=== PATIENT | female | born 1965 | race Caucasian/White ===

== ENCOUNTER 2016-10-31 09:08 | Emergency (ER) | payer MEDICAID ==
[2016-10-31] MEDS ORDERED: Ketorolac 60 MG/2 ML SDV IM ONE (09:22)
--- NOTE | 2016-10-31 09:45 | EDM.PDOC ---
ED HPI GENERAL MEDICAL PROBLEM - General Chief Complaint: Back Pain or Injury Stated Complaint: LEFT LEG NUMBNESS Time Seen by Provider: 10/31/16 09:23 Source of Information: Reports: Patient, Old Records History Limitations: Reports: No Limitations - History of Present Illness INITIAL COMMENTS - FREE TEXT/NARRATIVE: 51 yo female patient of Dr. Acosta presents with chronic low back pain. She has an appt with a neurologist in [place] in 6 days, but came from work stating she can't tolerate it any more. Did not contact her provider today before coming in to be seen. Has nothing new going on with her pain. Onset: Gradual Duration: Chronic, Getting Worse Location: Reports: Back Quality: Reports: Ache, Burning Severity: Moderate Improves with: Reports: Rest Worsens with: Reports: Movement Context: Reports: Other (degenerative dz) Associated Symptoms: Reports: Other (L leg and arm numbness.) Treatments DIRECTOR OF PEOPLE: Reports: Other (see below) (neurontin) - Related Data Allergies Allergy/AdvReac Type Severity Reaction Status Date / Time No Known Allergies Allergy Verified 06/25/14 13:24 Home Meds: Home Meds Albuterol Sulfate [Albuterol Sulfate HFA] 2 puff IH QID PRN 06/25/14 [History] Gabapentin [Neurontin] 300 mg PO TID 06/25/14 [History] Ibuprofen [Advil] 200 mg PO 6XDAY PRN 06/25/14 [History] Social & Family History - Tobacco Use Smoking Status *Q: Current Every Day Smoker Years of Tobacco use: 35 - Alcohol Use Days Per Week of Alcohol Use: 7 - Recreational Drug Use Recreational Drug Use: No ED ROS GENERAL - Review of Systems Review Of Systems: See Below Constitutional: Reports: No Symptoms Respiratory: Reports: No Symptoms Cardiovascular: Reports: No Symptoms GI/Abdominal: Reports: No Symptoms : Reports: No Symptoms Musculoskeletal: Reports: Back Pain Skin: Reports: No Symptoms Neurological: Reports: Numbness (L lower leg and L arm) Psychiatric: Reports: No Symptoms ED EXAM,LOWER BACK PAIN/INJURY - Physical Exam Exam: See Below Exam Limited By: No Limitations General Appearance: Alert, WD/WN, No Apparent Distress Ears: Hearing Grossly Normal Nose: Normal Inspection, No Blood Throat/Mouth: Normal Voice, No Airway Compromise Head: Atraumatic, Normocephalic Respiratory/Chest: No Respiratory Distress, No Accessory Muscle Use Cardiovascular: Regular Rate, Rhythm, No Edema Back Exam: Normal Inspection, Vertebral Tenderness (mild lumbar and R paraspinous muscle tenderness.). No: CVA Tenderness (R), CVA Tenderness (L) Extremities: Normal Inspection, Normal Range of Motion, Non-Tender Neurological: Alert, Normal Mood/Affect, CN II-XII Intact, No Motor/Sensory Deficits Psychiatric: Normal Affect, Normal Mood Skin Exam: Warm, Dry, Intact, Normal Color, No Rash Lymphatic: No Adenopathy Course - Vital Signs Text/Narrative:: Called and talked with her primary, Dr. Acosta, he is available to see her today. Last Recorded V/S: Last Vital Signs Temp 35.6 C 10/31/16 09:10 Pulse 95 10/31/16 09:10 Resp 18 10/31/16 09:10 BP 158/97 H 10/31/16 09:10 Pulse Ox 92 L 10/31/16 09:10 - Orders/Labs/Meds Meds: Medications Discontinued Medications Generic Name Dose Route Start Last Admin Trade Name Julio Cesar PRN Reason Stop Dose Admin Ketorolac Tromethamine 60 mg 10/31/16 09:22 10/31/16 09:36 Toradol IM 10/31/16 09:23 60 mg ONETIME ONE Administration Departure - Departure Time of Disposition: 09:55 Disposition: Home, Self-Care 01 Condition: Good Clinical Impression: Chronic low back pain Qualifiers: Back pain laterality: right Sciatica presence: with sciatica Sciatica laterality: sciatica of right side Qualified Code(s): M54.41 - Lumbago with sciatica, right side; G89.29 - Other chronic pain - Discharge Information Referrals: Javier Acosta MD [Primary Care Provider] - Forms: ED Department Discharge Care Plan Goals: Go to Dr. Acosta's office today to be seen by him.
[2016-10-31 10:13] VITALS: BP 119/77
== END 2016-10-31 10:01 | disposition home or self-care (01) ==
LOC: FB.ED 09:08
DX: G89.29 Other chronic pain (principal); M54.41 Lumbago with sciatica, right side; F17.210 Nicotine dependence, cigarettes, uncomplicated
CPT/HCPCS: 96372; 99283; J1885

== ENCOUNTER 2018-05-24 06:33 | Day surgery (SDC) | payer MEDICAID ==
[2018-05-24] MEDS ORDERED: Propofol 200 MG/20 ML SDV IV ONE (06:34)
[2018-05-24] MEDS ORDERED: Lidocaine 2% 100 MG/5 ML Syringe IVPUSH ONE (06:34)
[2018-05-24] MEDS ORDERED: Lactated Ringers 1,000 ML IV SCH (06:45)
[2018-05-24] MEDS ORDERED: Albuterol/Ipratropium 3.0-0.5 MG/3 ML Neb Soln NEB ONE (07:29)
[2018-05-24] MEDS ORDERED: Simethicone Drops 40 MG/0.6 ML 30 ML Bottle ONE (08:10)
--- NOTE | 2018-05-24 08:31 | PCM.OPNOTE ---
- General Post-Op/Procedure Note Date of Surgery/Procedure: 05/24/18 Operative Procedure(s): egd with bx. c scope with bx Findings: gastritis colon and rectal polyps Pre Op Diagnosis: abd pain bloating, early satiety. hx of dysplastic colon polyp Post-Op Diagnosis: gastritis. colon and rectal polyps Anesthesia Technique: [employer] Primary Surgeon: Jj Rankin Anesthesia Provider: Javier Mcmahan Pathology: stomach transverse colon descending colon Sigmoid colon Rectal polyp Complications: None Condition: Good Free Text/Narrative:: see dictation
[2018-05-24 08:53] VITALS: BP 143/82
--- NOTE | 2018-05-24 10:59 | OR ---
DATE OF OPERATION: 05/24/2018 SURGEON: Jj Rankin MD PROCEDURE PERFORMED: Upper endoscopy and colonoscopy with biopsy. PREOPERATIVE DIAGNOSES: History of upper abdominal discomfort and bloating as well as dysplastic colon polyps. POSTOPERATIVE DIAGNOSES: Gastritis, colon polyps, and rectal polyp. INDICATIONS FOR PROCEDURE: This is a 52-year-old white female who is referred with the above-mentioned complaints. She is overdue for followup colonoscopy as well. 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 She was offered and accepted both scopes at the same time. DESCRIPTION OF OPERATION: After an excellent IV sedation was administered, the bite block was inserted. A flexible endoscope was passed without difficulty down the patient's esophagus into the stomach. The stomach was insufflated. The scope was passed through the pylorus to the second portion of the duodenum and slowly withdrawn. The following findings were noted. The stomach is unremarkable. The duodenum revealed some diffuse gastritis. Multiple biopsies were taken. The esophagus was unremarkable. The stomach was deflated and the scope was removed. Our attention was then turned to the colon. A flexible colonoscope was inserted and advanced to the cecum without difficulty. The prep was excellent. The following findings were noted. Ascending colon was unremarkable. Transverse colon with polypoid lesion, biopsied with cold biopsy forceps and sent for permanent. This was in the distal transverse colon. Descending colon had a colon polyp which was biopsied with a hot loop snare and sent for permanent. Sigmoid had a small polyp which was biopsied with cold biopsy forceps and sent for permanent, and the rectum had a large 1 cm polyp that was pedunculated, which was biopsied with cold biopsy forceps as well. The colon was deflated. The scope was removed. The patient tolerated the procedure well and taken to Recovery. Results by letter. /[id number] /MODL
== END 2018-05-24 09:12 | disposition home or self-care (01) ==
LOC: FB.SDS 06:33
PROVIDERS: ATTEND Surgery
DX: K29.40 Chronic atrophic gastritis without bleeding (principal); D12.5 Benign neoplasm of sigmoid colon; D12.8 Benign neoplasm of rectum; K63.5 Polyp of colon; Z86.010 Personal history of colon polyps; Z79.899 Other long term (current) drug therapy; F17.210 Nicotine dependence, cigarettes, uncomplicated
CPT/HCPCS: 43239; 45380; 45385; 88305; 88342; A9270; J2001; J2704; J7120; J7620-GY

== ENCOUNTER 2020-09-07 11:47 | Day surgery (SDC) | payer MEDICAID ==
[2020-09-07] MEDS ORDERED: Glycopyrrolate 0.2 MG/ML 5 ML MDV IV ONE (11:48)
[2020-09-07] MEDS ORDERED: Propofol 200 MG/20 ML SDV IV ONE (11:48)
[2020-09-07] MEDS ORDERED: Lidocaine 2% 100 MG/5 ML Syringe IVPUSH ONE (11:48)
[2020-09-07] MEDS ORDERED: Sodium Chloride 0.9% 10 ML Syringe FLUSH PRN (12:00)
[2020-09-07] MEDS ORDERED: Lactated Ringers 1,000 ML IV SCH (12:00)
[2020-09-07] MEDS ORDERED: Albuterol/Ipratropium 3.0-0.5 MG/3 ML Neb Soln NEB ONE (12:36)
--- NOTE | 2020-09-07 12:53 | PCM.HPR ---
H & P Addendum review - H & P Addendum Review Date of Original H & P: 08/31/20 Date Reviewed: 09/07/20 Time Reviewed: 12:53 Patient was Examined: No Changes
--- NOTE | 2020-09-07 13:26 | PCM.OPNOTE ---
- General Post-Op/Procedure Note Date of Surgery/Procedure: 09/07/20 Operative Procedure(s): EGD with Bx. Colonoscopy with polypectomy Findings: Chronic Gastritis Colon Polyps; sig tics Pre Op Diagnosis: Abd pain, nausea and vomitting, hx polyps Post-Op Diagnosis: Same Anesthesia Technique: MAC Primary Surgeon: Tirso Blackmon Complications: None Condition: Good
[2020-09-07 14:30] VITALS: BP 149/80; PULSE 95
--- NOTE | 2020-09-08 08:11 | OR ---
DATE OF OPERATION: 09/07/2020 SURGEON: Tirso Blackmon MD PREOPERATIVE DIAGNOSES: 1. Chronic nausea and vomiting with abdominal pain. 2. History of colon polyps. POSTOPERATIVE DIAGNOSES: 1. Chronic gastritis. 2. Colon polyps. 3. Sigmoid diverticulosis. PROCEDURES: 1. Esophagogastroduodenoscopy with biopsy. 2. Colonoscopy with polypectomy. ANESTHESIA: IV sedation. DESCRIPTION OF PROCEDURE: The patient was brought to the procedure room, where she was placed on her left side and IV sedation administered. Oral bite block was placed and the upper endoscope advanced into the esophagus under direct vision without difficulty. Vocal cords were viewed and were normal. The scope was advanced to the third portion of the duodenum. Duodenum and pylorus were normal. Antrum and body have evidence of chronic gastritis with friability of the mucosa with some spontaneous bleeding. There also appeared to be a small amount of old dark blood in there, but no ulcers or erosions visible. I did take 2 biopsies from the antrum. The retroflexion reveals a normal-appearing fundus. No hiatal hernias present. Squamocolumnar junction appears normal. Air was removed from the stomach, and the scope withdrawn through the remaining esophagus, which appears normal. The patient tolerated this portion of the procedure fairly well but did have significant coughing and desaturation during a portion. Next, colonoscopy was performed after digital rectal exam was performed, which was normal. Colonoscope was inserted and advanced to the level of the cecum without difficulty. Cecal position was confirmed by identifying the appendiceal lumen and ileocecal valve. Prep was good and surfaces were well visualized. Upon withdrawing the scope, there was a 7 mm semi-pedunculated polyp in the mid ascending colon removed with the cautery snare and retrieved in the polyp trap. Transverse colon was normal. In the descending colon, there was a 7 mm sessile polyp removed with the cautery snare and retrieved in the polyp trap. Sigmoid colon had a few diverticula present. Rectum was normal and retroflexion was normal. Air was removed and the scope withdrawn. The patient tolerated the procedure well and returned to Recovery in stable condition. RECOMMENDATIONS: I recommend the patient start omeprazole 20 mg daily and contact her with the pathology report when it returns next week. If H pylori is present, this will be treated. She should undergo surveillance colonoscopy again in 5 years. /[id number]/SUSAN
== END 2020-09-07 14:15 | disposition home or self-care (01) ==
LOC: FB.SDS 11:47
PROVIDERS: ATTEND Surgery
DX: Z12.11 Encounter for screening for malignant neoplasm of colon (principal); D12.2 Benign neoplasm of ascending colon; D12.4 Benign neoplasm of descending colon; K29.50 Unspecified chronic gastritis without bleeding; K57.30 Diverticulosis of large intestine without perforation or abscess without bleeding; J44.9 Chronic obstructive pulmonary disease, unspecified; F12.10 Cannabis abuse, uncomplicated; Z90.49 Acquired absence of other specified parts of digestive tract; Z98.890 Other specified postprocedural states; Z79.899 Other long term (current) drug therapy
CPT/HCPCS: 00813; 43239; 45385; 88305; 88342; J2704; J3490; J7120; J7620-GY